=== PATIENT | male | born 1970 | race Caucasian/White ===

== ENCOUNTER → 2025-03-29 07:59 | Outpatient (BNVA) | payer OTHER, SELFPAY | PROVIDERS: Visit Provider Registered Nurse | DX: S29.011A Strain of muscle and tendon of front wall of thorax, initial encounter (principal); S22.31XA Fracture of one rib, right side, initial encounter for closed fracture; X50.3XXA Overexertion from repetitive movements, initial encounter | CPT/HCPCS: 71101; 99203 ==

== ENCOUNTER → 2025-03-31 09:13 | Outpatient (BNVA) | payer OTHER, SELFPAY | PROVIDERS: Visit Provider Physician Assistant | DX: S22.31XA Fracture of one rib, right side, initial encounter for closed fracture (principal); X50.3XXA Overexertion from repetitive movements, initial encounter | CPT/HCPCS: 99213 ==

== ENCOUNTER → 2025-04-08 12:56 | Outpatient (BNVA) | payer OTHER, SELFPAY | PROVIDERS: Visit Provider Physician Assistant | DX: S22.31XA Fracture of one rib, right side, initial encounter for closed fracture (principal); X50.3XXA Overexertion from repetitive movements, initial encounter | CPT/HCPCS: 71250; 99214 ==

== ENCOUNTER → 2025-04-22 12:39 | Outpatient (BNVA) | payer OTHER, SELFPAY | PROVIDERS: Visit Provider Physician Assistant | DX: S29.011D Strain of muscle and tendon of front wall of thorax, subsequent encounter (principal); S22.31XD Fracture of one rib, right side, subsequent encounter for fracture with routine healing; X50.3XXD Overexertion from repetitive movements, subsequent encounter | CPT/HCPCS: 99213 ==

== ENCOUNTER → 2025-05-06 12:56 | Outpatient (BNVA) | payer OTHER, SELFPAY | PROVIDERS: Visit Provider Physician Assistant | DX: S29.011A Strain of muscle and tendon of front wall of thorax, initial encounter (principal); S22.31XA Fracture of one rib, right side, initial encounter for closed fracture; X50.3XXA Overexertion from repetitive movements, initial encounter; Z02.79 Encounter for issue of other medical certificate | CPT/HCPCS: 99213 ==